=== PATIENT | female | born 1980 | race Asian ===

== ENCOUNTER → 2020-02-22 | Outpatient (CLI) | payer OTHER ==
[~2020-02-22] MED LIST: COVID-19 VACC, MRNA(MODERNA)/PF 100 MCG/0.5 ML VIAL IM ONE
== END ==
LOC: VACCPMC 13:25
DX: Z23 Encounter for immunization (principal); Z20.828 Contact with and (suspected) exposure to other viral communicable diseases

== ENCOUNTER → 2020-03-28 | Outpatient (CLI) | payer BC, OTHER | END | DRG 951 | LOC: VACCPMC 07:30 | DX: Z23 Encounter for immunization (principal); Z20.822 Contact with and (suspected) exposure to COVID-19 | CPT/HCPCS: 0012A; 91301 ==

== ENCOUNTER 2021-02-15 01:49 | Emergency (ER) | payer BC, OTHER ==
[~2021-02-15] VITALS: Ht 152.4 cm; Wt 59.0 kg
[2021-02-15] MEDS ORDERED: SODIUM CHLORIDE 0.9% 100 ML ONE (02:15)
[2021-02-15] MEDS ORDERED: SOTROVIMAB 500 MG in SODIUM CHLORIDE 0.9% 100 ML IV ONE (02:15)
== END 2021-02-15 03:50 | disposition home or self-care (01) ==
LOC: ER 01:51
DX: U07.1 COVID-19 (principal)
CPT/HCPCS: 99284; J7050; U0002

== ENCOUNTER → 2024-01-14 | Outpatient (REF) | payer BC | LOC: US 06:49 | PROVIDERS: ATTEND Internal Medicine | DX: E04.2 Nontoxic multinodular goiter (principal) | CPT/HCPCS: 76536 ==

== ENCOUNTER → 2024-02-04 | Outpatient (REF) | payer BC ==
[~2024-02-04] MED LIST changes: -COVID-19 VACC, MRNA(MODERNA)/PF 100 MCG/0.5 ML VIAL IM ONE; +LIDOCAINE 2% /EPINEPHRINE 20 ML SDV INJ ONE; +LIDOCAINE HCL 1% 30ML-PF VIAL ONE
== END ==
LOC: US 06:36
PROVIDERS: ATTEND Internal Medicine
DX: E04.1 Nontoxic single thyroid nodule (principal); E04.2 Nontoxic multinodular goiter
CPT/HCPCS: 10005; 10006; 88172; 88173; 88305; J2003; J2004